=== PATIENT | male | born 1955 | race Caucasian/White ===

== ENCOUNTER → 2018-06-28 | Outpatient (CLI) | payer OTHER ==
[~2018-06-28] MED LIST: CARDIZEM CD180 MG PO; DILTIAZEM 24HR180 MG PO; HYDROCODONE-APA1 TA1 PO; IBUPROFEN 200200 M1 PO; NABUMETONE 750750 M1 PO; NEURONTIN 300300 M1 PO; NORCO 10-325 T1 EACH PO; SOMA250 MG PO; TEGRETOL XR100 MG PO
== END ==
LOC: CAT 10:47
DX: C34.92 Malignant neoplasm of unspecified part of left bronchus or lung (principal); C78.7 Secondary malignant neoplasm of liver and intrahepatic bile duct; J43.9 Emphysema, unspecified; M41.84 Other forms of scoliosis, thoracic region; M51.34 Other intervertebral disc degeneration, thoracic region

== ENCOUNTER → 2018-07-02 | Outpatient (CLI) | payer OTHER ==
[~2018-07-02] VITALS: Ht 175.3 cm; Wt 91.6 kg
[2018-07-02] VITALS (8 sets, daily range): BP systolic 99–135; BP diastolic 54–74
[~2018-07-02] MED LIST changes: +ATIVAN1 MG PO; +CARISOPRODOL 3350 MG PO; +COZAAR100 MG PO; +MELOXICAM15 MG PO; +NORCO 7.5-3251 EACH PO; +REMERON15 M2 PO; +REQUIP 1 MG TABL1 M1 PO; +SENNA-DOCUSATE1 EAC1 PO; -SOMA250 MG PO; +VENTOLIN HFA 1818 GM INH; +ZOFRAN ODT4 MG PO
[2018-07-02 08:37] LABS: HEMATOCRIT 44.9 % (42.0-52.0); HEMOGLOBIN 15.3 gm/dL (14.0-18.0); MCH 32.4 pg (26.0-34.0); MCHC 34.1 g/dL (28.0-37.0); MCV 95.1 fL (80.0-100.0); RBC 4.72 mil/uL (4.50-6.00); RDW 13.4 % (10.5-14.5); WBC 7.7 thou/uL (4.0-11.0)
[2018-07-02 08:43] LABS: CALCIUM 9.3 mg/dL (8.5-10.1); CREATININE 1.1 mg/dL (0.7-1.3); POTASSIUM 4.5 mmol/L (3.5-5.1)
[2018-07-02 08:49] LABS: APTT 28.9 Seconds (24.5-32.8); PROTIME 10.1 Seconds (9.3-11.4)
--- NOTE | 2018-07-02 11:09 | NUR ---
PT RESTING COMFORTABLY, VSS, PT LYING ON RIGHT SIDE, HEMATOMA IMPROVED, REMAINS STABLE. WILL CONTINUE TO MONITOR.
--- NOTE | 2018-07-20 11:08 | PATH ---
[facility] [address] [place] [address] PATHOLOGY RPT PROCEDURE Name: BK MCLEOD Room #: REG [facility] M.R.#: [id number] ������������������ Admission: 07/02/18 ������������������ Date of : 59 Discharge: Report #: [id number] Path Case #: [id number] LCA Accession Number: [id number] . 01 Material submitted: . RT LIVER MASS . 01 Clinical history: . Lung mass with hepatic metastasis . 02 Diagnosis: Liver mass, right, needle core biopsy: - MODERATELY DIFFERENTIATED ADENOCARCINOMA, FAVOR LUNG ORIGIN (PLEASE SEE COMMENT). [facility]/07/06/2018 . 02 Comment: Examination shows a gland forming neoplasm within the liver parenchyma. Multiple immunohistochemical stains are performed. The tumor shows strong membranous reactivity with CK7 and CK19. Strong nuclear reactivity is identified with TTF-1. CDX-2 shows scattered rare nuclear reactivity present. CK20 is nonreactive. Based on these stains, the tumor likely represents a metastasis from the lung primary. Although CDX-2 is reactive within a few nuclei, the nonreactive CK20 argues against a metastatic gastrointestinal origin. The nonreactive CK20 also argues against a hepato-biliary primary. Please correlate clinically and follow up as indicated. . Dr. Brooklyn Adrian has seen a customer engagement representative H and E slide and concurs with the diagnosis. Findings of this case are telephoned to Ms. Ford, Dr. Naren Norman's nurse, at 12:05 pm on 07/05/2018. (IUV:pit 07/06/2018) . 02 Addendum: . At the request of the oncologist, Dr. Ketan Son, mismatch repair (MMR) protein immunohistochemical staining for four markers was performed on block A1. . Reason for testing: To evaluate for evidence of defective mismatch repair proteins. Method: Immunohistochemical staining for the presence or absence of protein expression of one or more of the following MMR protein markers: MLH1,MSH2, MSH6 and PMS2. Tumor type: Moderately differentiated adenocarcinoma. . Results: MLH1 - Preserved [address] [address] PATHOLOGY RPT PROCEDURE Name: BK MCLEOD Room #: REG [facility].#: [id number] ������������������ Admission: 07/02/18 ������������������ Date of : 59 Discharge: Report #: [id number] Path Case #: [id number] MSH2 - Preserved MSH6 - Preserved PMS2 - Preserved . Mismatch Repair Status: MMR Proficient (MMR-P) . Interpretation: . All four MMR proteins are preserved within tumor cells. This suggests the presence of normal DNA mismatch repair function within the tumor and an observable defect in mismatch repair is not identified. The likelihood that this patient has an inherited germline mutation syndrome due to defective mismatch repair is reduced but not totally eliminated. If the patient has a strong personal or family history of HPNCC/Momin syndrome related cancers (colorectal, endometrial, gastric, ovarian, pancreatic, ureter/renal pelvis, biliary tract, brain, small bowel and [place]-Guido syndrome), consider MSI testing by PCR methodology. Suggest clinical correlation and follow up. . These test results are designed for screening purposes only and are useful tools in identifying cancer patients that are more likely to have Momin Syndrome related diagnoses. Tests should be interpreted in the context of clinical findings, family history and laboratory data. Abnormal IHC results for MMR protein expression are not considered diagnostic for Momin Syndrome. (IUV:jonathan; 07/08/2018) . Professional services performed by [employer] at [facility], [address] [place] [address] , [place] [address]. Technical services performed by [employer] at [address] [place] [address], [address] [address]. QTP/07/08/2018 Addendum Electronically Signed by Breonna Riley MD, Pathologist Addendum #2: Special studies report received from [facility], [address] [place] [address], [address], [place], [address], on case [id number], labeled with their number [id number], dated 07/17/2018. . Fluorescence in situ Hybridization (FISH) Report ALK Analysis . RESULT: No Evidence of ALK Gene Rearrangement Detected by FISH nuc trisha(ALKx3 approximately 6)(34/50) . Specimen Type: Tissue, Right Liver Mass . Specimen Fixative Type: 10% Neutral Buffered Formalin . Indication for Study: Adenocarcinoma, favor lung origin. [address] [address] PATHOLOGY RPT PROCEDURE Name: BK MCLEOD JR Room #: REG [facility]#: [id number] ������������������ Admission: 07/02/18 ������������������ Date of : 59 Discharge: Report #: [id number] Path Case #: [id number] . INTERPRETATION: Fluorescence in situ hybridization (FISH) analysis was performed on paraffin embedded tissue using an ALK Break Apart DNA probe (FDA approved kit, [employer]) for the detection of rearrangements involving the ALK gene. . Fifty interphase nuclei were examined and no evidence of ALK specific gene rearrangement was detected. However, 68.0% of cells showed one or more additional fusion signals for the ALK DNA sequence located at 2p; likely representing an aneuploidy population with extra copies of chromosome 2/2p ALK region. . Genetic changes other than those assayed here cannot be ruled out on the basis of this testing. Correlation with clinical and pathological findings is suggested for a complete interpretation of the results. . See FISH report [id number] for further information. See report [id number] for further information. See Molecular report [id number] for further information. . at [facility], [employer]. Lorenza Mayer, PhD, FACMG Director of Clinical Cytogenetics . . Methodology: FISH was performed using ALK Break Apart FISH Probe Kit (FDA approved, [employer] A minimum of fifty invasive tumor cells were examined from areas that were delineated by a Pathologist from a corresponding H/E slide. A classification of each nucleus as positive or negative is recorded according to line dancer's instruction. The results are calculated as a percentage of the total positive cells to total cell analyzed. The normal cutoff was established as 15% using NSCLC FFPE tissue specimen. A negative result is reported when a sample with <15% rearranged cells and a positive result is defined when a sample shown greater than or equal to 15% cells with ALK gene rearrangements. A result is considered uninformative when there are less than 50 invasive tumor cells for FISH analysis. . Intended Use: The ALK Break Apart FISH Probe procedure is a qualitative test to detect rearrangements involving the ALK gene via fluorescence in situ hybridization (FISH) in FFPE NSCLC tissue specimens to aid in identifying those patients eligible for treatment with XALKOR (crizotinib). It is intended for use only on 10% neutral buffered formalin fixed paraffin-embedded NSCLC tissue. The optimal fixation time for tissue is [facility] [address] [place] [address] PATHOLOGY RPT PROCEDURE Name: BK MCLEOD Room #: REG [facility].#: [id number] ������������������ Admission: 07/02/18 ������������������ Date of : 59 Discharge: Report #: [id number] Path Case #: [id number] 6-48 hours. The test is for prescription use only. . Disclaimer This Test was performed by [facility] [employer] at [address], [address]. [facility] is a business unit of [employer], [employer] a wholly-owned subsidiary of [employer]. . . This assay has not been validated on decalcified tissues. Results should be interpreted with caution if this specimen was decalcified given the likelihood of false negativity on decalcified specimens. . Any image(s) that accompany this report is/are a customer engagement representative image(s) only and should not be used to render a diagnosis. A complete copy of the report is on file. . Professional services performed by [facility] at [address] [place] [address], [address] [address]. Technical services performed by [employer], [employer] at [address] [place] [address], [place] [id number]. . (AMJ 07/19/2018) . . . . . Special studies report received from [facility], [address] [place] [address], on case [id number], labeled with their number [id number], dated 07/17/2018. . Fluorescence in situ Hybridization (FISH) Report TargetGene Analysis . RESULT: Negative for ROS1 gene rearrangement . Specimen Type: Tissue, Right Liver Mass . Indication for Study: Adenocarcinoma, favor lung origin. . INTERPRETATION: Fluorescence in situ hybridization (FISH) analysis was performed on this patient's paraffin embedded tissue specimen using a dual color break apart DNA probes for ROS1 gene. . One hundred interphase nuclei were examined and no evidence of a ROS1 gene [address] [address] PATHOLOGY RPT PROCEDURE Name: BK MCLEOD Room #: REG CLI Dianna.#: [id number] ������������������ Admission: 07/02/18 ������������������ Date of : 59 Discharge: Report #: [id number] Path Case #: [id number] specific rearrangement (split signal pattern) was detected. However, 22.0% of cells showed one or more additional fusion signals for the ROS1 DNA sequence located at 6q; likely representing an aneuploidy population with extra copies of chromosome 6/6q ROS1 region. . Genetic changes other than those assayed here cannot be ruled out on the basis of this testing. Correlation with clinical and other pathological findings is suggested for a complete interpretation of these results. . See report [id number] for further information. See report [id number] for further information. See Molecular report [id number] for further information. . The following TargetGene FISH analysis was performed on this patient's specimen: Probe Detection Parameters Result ISCN ROS1 (6q22) Detects a rearrangement Not Detected nuc trisha(3'ROS1,5'ROS1) of the ROS1 gene x3 approximately 4 (3'ROS1 con 5'ROS1x3 approximately 4) () . at [facility], [employer]. Lorenza Mayer, PhD, [facility] Director of Clinical Cytogenetics . Methodology: The patient specimen is processed onto a glass slide. Fluorescent DNA probe(s) is(are) applied to the cells on the slide under conditions of denaturation followed by hybridization. Stringency washes are applied and the slide is subsequently counterstained. A minimum of 100 interphase nuclei are analyzed unless otherwise indicated above. . References: Celestine Field, Yury FLORES, Vicente SH, et al. ROS1 rearrangements define a unique molecular class of lung cancers. J Clin Oncol, 2012;30:863-70. . Yury FLORES, Vicente MAYORGA, Bassem Y-J, et al. Crizotinib in ROS1-rearranged apf-eggbc-kfra lung cancer. N Engl J Med, 2014;371:1963-71 . Disclaimer This Test was performed by [employer] at [facility], [address]. . [facility] is a business unit of [employer] a wholly-owned subsidiary of [employer]. [address] [address] PATHOLOGY RPT PROCEDURE Name: BK MCLEOD JR [facility] [id number] ������������������ Admission: 07/02/18 ������������������ Date of : 59 Discharge: Report #: [id number] Path Case #: [id number] . This assay has not been validated on decalcified tissues. Results should be interpreted with caution if this specimen was decalcified given the likelihood of false negativity on decalcified specimens. . Any image(s) that accompany this report is/are a customer engagement representative image(s) only and should not be used to render a diagnosis. . This test was developed and its performance characteristics determined by [facility] [employer] It has not been cleared or approved by the Food and Drug Administration. . A complete copy of the report is on file. . Professional services performed by [facility] at [address] [place] [address]. Technical services performed by [employer] at [address] [place] [address]. . (AMJ 07/19/2018) . . . . . Special studies report received from [facility], [address] [place] [address], on case [id number], labeled with their number [id number], dated 07/19/2018. . EGFR Gene Mutation Analysis . INTERPRETATION: Negative for EGFR Mutation. . Indication for Study: Metastatic Lung Adenocarcinoma . Specimen Site and Type: Paraffin-Embedded Tissue-Right Liver . Nucleotide Change: . Amino Acid Change: . Comments: No mutations were detected within the analyzed region of the EGFR gene in the sample provided for analysis. Less than 5% of non-small cell lung carcinoma patients without identifiable mutations are reported to be responsive to EGFR tyrosine kinase inhibitor therapies. Results should be interpreted in conjunction with clinical and other laboratory findings for [address] [place] [address] PATHOLOGY RPT PROCEDURE Name: HARSHABK LACEY Room #: REG CLI [facility].#: [id number] ������������������ Admission: 07/02/18 ������������������ Date of : 59 Discharge: Report #: [id number] Path Case #: [id number] the most accurate interpretation. . A subgroup of non-small cell lung cancer (NSCLC) patients has shown clinical responsiveness to the epidermal growth factor receptor (EGFR) inhibitors gefitinib (IRESSA) and erlotinib (Tarceva), including never smokers, individuals of ethnicity, and those with adenocarcinoma histology. In the majority of patients with highly responsive tumors, the tumor contains a somatic mutation within the EGFR tyrosine kinase domain. The presence of a somatic EGFR mutation is significantly associated with response to gefitinib and erlotinib, and is strongly predictive of prolonged survival in NSCLC patients. . T790M mutation had been tested but was not detected in this submitted specimen. . This assay is able to detect 5% mutation in a background of wild-type DNA. . . See report [id number] for further information. See FISH report [id number] for further information. See report [id number] for further information. . . . at [facility], [employer]. Colin Faulkner, Ph.D., WENDY DABMG, DABCC, DLMcm, M([facility])cm, SUGAR([facility])cm . Methodology: Genomic DNA was isolated from the provided tumor specimen. Exons 18 through 21 of the EGFR gene were subjected to SNaPShot multiplex PCR and primer extension for mutation detection. . Table: This Assay Can Detect the Following Mutations EGFR EGFR Codon Mutation Approximate % of all EGFR Exon Mutations 18 E709 E709K,E709Q 1% G719 G719S,G719C,G719A,G719D 2-5% 19 Insertions 18bp ins 1% Deletions 9,12,15,18,24 bp del 45% 20 Insertions 3,6,8,12 bp ins 5-10% S768 S768I 1-2% R776 R776C <1% T790 T790M 2% 21 L858 L858R 40% A859 A859T <1% L861 L861Q,L861R 2-5% [address] [address] PATHOLOGY RPT PROCEDURE Name: BK MCLEOD Room #: REG CLI Juliana#: [id number] ������������������ Admission: 07/02/18 ������������������ Date of : 59 Discharge: Report #: [id number] Path Case #: [id number] * This Assay does not distinguish between the 18bp insertion and deletions at nucleotide position 2235 and 2237 . References: 1. Galo PA, Georgi JA, Quinn BE. Epidermal Growth Factor Receptor Mutations in Qxy-Whpjk-Mhyo Lung Cancer: Implications for Treatment and Tumor Biology. J. Clin. Oncol. 2005; 23:9592-2467. 2. Katty CLEVELAND et al. A Platform for Rapid Detection of Multiple Oncogenic Mutations with Relevance to Targeted Therapy in Toa-Lccgf-Uxtq Lung Cancer. J. Mol. Diagn. 2011;13(1):74-84. . Disclaimer This Test was performed by [facility] at [address] [place] [address], [facility] [address], [place], [address]. [employer] is a business unit of [employer] a wholly-owned subsidiary of [employer]. . . Any image(s) that accompany this report is/are a customer engagement representative image(s) only and should not be used to render a diagnosis. . This test was developed and its performance characteristics determined by [employer], [employer]. It has not been cleared or approved by the Food and Drug Administration. . A complete copy of the report is on file. . Professional services performed by [facility] at [facility] [address] [facility] [address], [place] [address]. Technical services performed by [employer] at [facility] [address] [place] [address]., [facility] [address], [place] [address]. . (AMJ 07/19/2018) . AZJ/07/19/2018 Addendum Electronically Signed by Breonna Riley MD, Pathologist Addendum #3: Special studies report received from [employer], [address] [place] [address], [facility] [address], [place], [address], on case [id number], labeled with their number [id number], dated 07/19/2018. . PD-L1 Immunohistochemistry Analysis . Body Site: Right liver mass. Specimen Received: 1 paraffin block labeled "[id number]". [place] [address] PATHOLOGY RPT PROCEDURE Name: BK MCLEOD JR [facility] #: [facility] [id number] ������������������ Admission: 07/02/18 ������������������ Date of : 59 Discharge: Report #: [id number] Path Case #: [id number] Adenocarcinoma, lung primary. . Results Table PD-L1 - KEYTRUDA (R) Tumor Interpretation Proportion [id number] <1% No Expression . . . Reference Ranges PD-L1 protein expression is determined by using the Tumor Proportion Score (TPS), which is the percentage of at least 100 viable tumor cells showing complete or partial membrane staining at greater than or equal to 1+. TPS less than 1% = No Expression TPS between 1% and 49% = Low Expression - Eligible for second-line treatment with KEYTRUDA (R) (pembrolizumab). TPS greater than or equal to 50% = High Expression - Eligible for first or second-line treatment with KEYTRUDA (R)(pembrolizumab). . . at [employer]. Lisa Gomez M.D. . Tests PD-L1 IHC Analysis . Intended Use: PD-L1, 22C3 pharmDx (TM) is FDA approved for use in the detection of PD-L1 in formalin-fixed paraffin-embedded non-small cell lung carcinoma using the [employer] Link 48 platform. The Assay is indicated as an aid in identifying metastatic NSCLC patients for treatment with KEYTRUDA(R) (pembrolizumab). PD-L1, 22C3 pharmDx (TM) is a trademark of [employer], an [employer]. Reference ranges for this test in other cancer types are not approved at this time. . References: Lani RS, Camryn P, Ann HunterW, et al: Pembrolizumab versus docetaxel for previously treated, FH-U4-bpjavqjh, advanced bor-idbps-dtgx lung cancer (KEYNOTE-010): a randomized controlled trial. Lancet 2015 Jun 16; Online(85) 1080-3. . Laura EB, Jaimee NA, Destiney R, et al: Pembrolizumab for the Treatment of Bub-Jgfrb-Wmhq Lung Cancer. N Engl J Med 2015 November 16; 372:4456-9563. . Please contact [facility] for additional references. . Disclaimer [address] [address] PATHOLOGY RPT PROCEDURE Name: BK MCLEOD Room #: REG [facility]#: [id number] ������������������ Admission: 07/02/18 ������������������ Date of : 59 Discharge: Report #: [id number] Path Case #: [id number] This Test was performed by [facility], [employer]. at [facility], [address]. [facility] is a business unit of [facility], [employer] a wholly-owned subsidiary of [employer]. . . Any image(s) that accompany this report is/are a customer engagement representative image(s) only and should not be used to render a diagnosis. . This interpretation is contingent on the specimen and the clinical information received. . Known positive cells or tissues are employed with each test and examined to ensure positivity. Positive and negative internal controls, if present, react appropriately. . This analysis is an adjunct to the evaluation of the referring physician and does not represent a final diagnosis. . The immunohistochemistry tests performed at [facility], [employer]. were validated on tissue fixed in 10% neutral buffered formalin. The performance characteristics of the tests performed on tissue processed in other fixatives is not known. . This assay has not been validated on decalcified tissues. Results should be interpreted with caution if this specimen was decalcified given the likelihood of decreased staining or false negativity on decalcified specimens. . A complete copy of the report is on file. . Professional services performed by [facility] at [address], [place] [address]. Technical services performed by [employer] at [address], [place] [address]. . (AM 07/19/2018) . . . [facility]/07/19/2018 Addendum Electronically Signed by Breonna Riley MD, Pathologist . 02 Electronically signed: . Breonna Riley MD, Pathologist NPI- [id number] . [address] [place] [address] PATHOLOGY RPT PROCEDURE Name: WENCESLAOStaceyBK DEEPTHI Room #: REG [facility]#: [id number] ������������������ Admission: 07/02/18 ������������������ Date of : 59 Discharge: Report #: [id number] Path Case #: [id number] Gross description: . The specimen is received in formalin, labeled "Bk Mcleod Jr, right liver mass BX" and consists of 3 needle cores of quispe-brown tissue measuring 2.5 cm each in length and 0.1 cm each in diameter which are entirely submitted in A1. (SDY; 07/02/2018) SYU/SYU . 02 Pathologist provided ICD-10: C22.9 . 02 CPT . 947803, A98325, C91923 Specimen Comment: A courtesy copy of this report has been sent to Specimen Comment: [phone], , . Specimen Comment: Report sent to ,DR NORMAN / DR CHEN Specimen Comment: A duplicate report has been generated due to demographic updates. Performed at: [address] [facility], [place] [address] MD Darrin Arango MD Phone: [phone] Performed at: [address] [facility] [id number] MD Breonna Riley MD Phone: [phone]
== END | disposition home or self-care (01) ==
LOC: ULTRA 08:12
PROVIDERS: Radiology Diagnostic Radiology
DX: C78.7 Secondary malignant neoplasm of liver and intrahepatic bile duct (principal); J45.909 Unspecified asthma, uncomplicated; G47.33 Obstructive sleep apnea (adult) (pediatric); F17.210 Nicotine dependence, cigarettes, uncomplicated; Z98.890 Other specified postprocedural states; Z82.49 Family history of ischemic heart disease and other diseases of the circulatory system; Z86.73 Personal history of transient ischemic attack (TIA), and cerebral infarction without residual deficits; Z88.8 Allergy status to other drugs, medicaments and biological substances; Z79.899 Other long term (current) drug therapy

== ENCOUNTER 2018-07-19 21:40 | Emergency (ER) | payer OTHER ==
[~2018-07-19] VITALS: Ht 175.3 cm; Wt 90.7 kg
[~2018-07-19 21:40] MED LIST changes: -NORCO 7.5-3251 EACH PO; -SENNA-DOCUSATE1 EAC1 PO; -ZOFRAN ODT4 MG PO
[2018-07-19 22:26] LABS: URINE BILIRUBIN NEGATIVE (Negative); URINE BLOOD NEGATIVE (Negative); URINE CLARITY CLEAR; URINE COLOR YELLOW; URINE GLUCOSE-RANDOM* NEGATIVE (Negative); URINE KETONES NEGATIVE (Negative); URINE LEUKOCYTES NEGATIVE (Negative); URINE NITRITE NEGATIVE (Negative); URINE PROTEIN (DIPSTICK) NEGATIVE (Negative); URINE SPECIFIC GRAVITY 1.025 (1.005-1.035); URINE UROBILINOGEN 0.2 E.U./dl (0.2-1.0)
[2018-07-19 23:35] LABS: ABSOLUTE NEUTROPHILS 5.8 thou/uL (1.4-8.2); BASOPHILS 0.9 % (0.0-2.0); HEMATOCRIT 38.5 % (42.0-52.0); HEMOGLOBIN 13.6 gm/dL (14.0-18.0); MCH 33.2 pg (26.0-34.0); MCHC 35.4 g/dL (28.0-37.0); MCV 93.7 fL (80.0-100.0); MONOCYTES 9.4 % (1.0-8.0); PLATELET COUNT 200 thou/uL (150-400); POLYS 65.7 % (36.0-66.0); RBC 4.11 mil/uL (4.50-6.00); RDW 12.9 % (10.5-14.5); WBC 8.9 thou/uL (4.0-11.0)
[2018-07-19 23:42] LABS: ANION GAP 5 mmol/L (7-16); BUN 22 mg/dL (7-18); CALCIUM 9.1 mg/dL (8.5-10.1); CHLORIDE 102 mmol/L (98-107); CO2 30 mmol/L (21-32); CREATININE 0.8 mg/dL (0.7-1.3); GLUCOSE 97 mg/dL (74-106); POTASSIUM 4.4 mmol/L (3.5-5.1); SODIUM 137 mmol/L (136-145)
[2018-07-19 23:48] LABS: ALBUMIN 3.5 g/dL (3.4-5.0); DIRECT BILIRUBIN < 0.1 mg/dL (<0.1-0.3); LIPASE 249 U/L (73-393); SGOT 45 U/L (15-37); SGPT 49 U/L (30-65); TOTAL BILIRUBIN 0.3 mg/dL (<0.1-1.0); TOTAL PROTEIN 7.6 g/dL (6.4-8.2)
[2018-07-20] MEDS ORDERED: SENNA-DOCUSATE1 EAC1 PO (02:03)
[2018-07-20] MEDS ORDERED: ZOFRAN ODT4 MG PO (02:03)
[2018-07-20] MEDS ORDERED: NORCO 7.5-3251 EACH PO (02:03)
[2018-07-20 03:01] VITALS: BP 118/67
== END 2018-07-20 03:01 | disposition home or self-care (01) ==
LOC: ER 21:40
PROVIDERS: Nurse Practitioner
DX: C78.7 Secondary malignant neoplasm of liver and intrahepatic bile duct (principal); K59.00 Constipation, unspecified; J45.909 Unspecified asthma, uncomplicated; G47.30 Sleep apnea, unspecified; F17.210 Nicotine dependence, cigarettes, uncomplicated; Z88.5 Allergy status to narcotic agent; Z88.8 Allergy status to other drugs, medicaments and biological substances

== ENCOUNTER → 2018-07-19 | Outpatient (CLI) | payer OTHER ==
[~2018-07-19] VITALS: Ht 175.3 cm; Wt 86.2 kg
[2018-07-19 09:47] VITALS: BP 100/59
[2018-07-19 09:51] LABS: PROTIME 10.5 Seconds (9.3-11.4)
[2018-07-19 11:59] VITALS: BP 111/60
== END | disposition home or self-care (01) ==
LOC: SPEC 08:52
PROVIDERS: Radiology Diagnostic Radiology
DX: Z45.2 Encounter for adjustment and management of vascular access device (principal); C78.7 Secondary malignant neoplasm of liver and intrahepatic bile duct; I49.9 Cardiac arrhythmia, unspecified; J45.909 Unspecified asthma, uncomplicated; G47.33 Obstructive sleep apnea (adult) (pediatric); F17.210 Nicotine dependence, cigarettes, uncomplicated; Z88.8 Allergy status to other drugs, medicaments and biological substances; Z86.73 Personal history of transient ischemic attack (TIA), and cerebral infarction without residual deficits; Z79.899 Other long term (current) drug therapy; Z98.890 Other specified postprocedural states; Z79.01 Long term (current) use of anticoagulants

== ENCOUNTER → 2018-08-24 | Outpatient (CLI) | payer OTHER ==
[~2018-08-24] MED LIST changes: +NORCO 7.5-3251 EACH PO; +SENNA-DOCUSATE1 EAC1 PO; +ZOFRAN ODT4 MG PO
== END ==
LOC: RAD 09:58
DX: T82.848A Pain due to vascular prosthetic devices, implants and grafts, initial encounter (principal); G89.18 Other acute postprocedural pain; Y82.8 Other medical devices associated with adverse incidents; Y92.89 Other specified places as the place of occurrence of the external cause

== ENCOUNTER 2018-10-10 17:11 | Emergency (ER) | payer OTHER ==
[~2018-10-10] VITALS: Ht 175.3 cm; Wt 75.8 kg
[2018-10-10] MEDS ORDERED: OXYCONTIN10 M1 PO (18:02)
[2018-10-10] MEDS ORDERED: PROZAC20 MG PO (18:03)
[2018-10-10] MEDS ORDERED: KLONOPIN0.5 MG PO (18:03)
[2018-10-10] MEDS ORDERED: LOPERAMIDE 2 MG2 MG PO (18:04)
[2018-10-10 18:08] LABS: ABSOLUTE NEUTROPHILS 7.8 thou/uL (1.4-8.2); BASOPHILS 0.6 % (0.0-2.0); EOSINOPHILS 1.7 % (0.0-3.0); HEMATOCRIT 31.3 % (42.0-52.0); HEMOGLOBIN 10.6 gm/dL (14.0-18.0); LYMPHOCYTES 21.4 % (24.0-44.0); MCH 33.4 pg (26.0-34.0); MCHC 33.8 g/dL (28.0-37.0); MCV 98.7 fL (80.0-100.0); MONOCYTES 9.8 % (1.0-8.0); PLATELET COUNT 220 thou/uL (150-400); POLYS 66.5 % (36.0-66.0); RBC 3.17 mil/uL (4.50-6.00); RDW 19.6 % (10.5-14.5); WBC 11.7 thou/uL (4.0-11.0)
[2018-10-10 18:19] LABS: CALCIUM 8.3 mg/dL (8.5-10.1); CREATININE 0.7 mg/dL (0.7-1.3)
[2018-10-10 18:25] LABS: TOTAL BILIRUBIN 0.3 mg/dL (<0.1-1.0); TOTAL PROTEIN 6.6 g/dL (6.4-8.2)
[2018-10-10 18:35] LABS: ANISOCYTOSIS 2+
[2018-10-10 20:00] VITALS: BP 97/59
== END 2018-10-10 20:00 | disposition home or self-care (01) ==
LOC: ER 17:11
PROVIDERS: Physician Assistant
DX: M79.89 Other specified soft tissue disorders (principal); R60.0 Localized edema; J45.909 Unspecified asthma, uncomplicated; G47.30 Sleep apnea, unspecified; F17.210 Nicotine dependence, cigarettes, uncomplicated; Z88.6 Allergy status to analgesic agent; Z88.8 Allergy status to other drugs, medicaments and biological substances

== ENCOUNTER 2019-04-26 09:30 | Inpatient (IN) | payer OTHER ==
[~2019-04-26] VITALS: Ht 175.3 cm; Wt 76.0 kg
[~2019-04-26 09:30] MED LIST changes: +KLONOPIN0.5 MG PO; +LOPERAMIDE 2 MG2 MG PO; +OXYCONTIN10 M1 PO; +PROZAC20 MG PO
[2019-04-26 10:20] VITALS: BP 127/72
[2019-04-26] MEDS ORDERED: ONDANSETRON ODT8 MG PO (10:58)
[2019-04-26] MEDS ORDERED: OXYCODONE HCL20 M1 PO (11:01)
[2019-04-26] MEDS ORDERED: VIT B COMPLEX PO (11:03)
[2019-04-26] MEDS ORDERED: EMERGEN-C 1,01000 MG PO (11:04)
[2019-04-26] MEDS ORDERED: DURAGESIC1 EAC2 TRANSDERM (11:05)
[2019-04-26] MEDS ORDERED: HYDROCHLOROTHIA25 M1 PO (11:06)
[2019-04-26] MEDS ORDERED: MIRTAZAPINE15 M2 PO (11:07)
[2019-04-26] MEDS ORDERED: COMPAZINE10 MG PO (11:08)
[2019-04-26 12:50] LABS: ABSOLUTE NEUTROPHILS 4.6 thou/uL (1.4-8.2); BASOPHILS 0.6 % (0.0-2.0); EOSINOPHILS 2.1 % (0.0-3.0); HEMATOCRIT 30.9 % (42.0-52.0); LYMPHOCYTES 16.8 % (24.0-44.0); MCH 32.5 pg (26.0-34.0); MCHC 32.5 g/dL (28.0-37.0); PLATELET COUNT 159 thou/uL (150-400); POLYS 76.5 % (36.0-66.0); RBC 3.09 mil/uL (4.50-6.00); RDW 19.4 % (10.5-14.5)
[2019-04-26 13:15] LABS: ALBUMIN 2.7 g/dL (3.4-5.0); CALCIUM 8.1 mg/dL (8.5-10.1); CREATININE 0.7 mg/dL (0.7-1.3); MAGNESIUM 1.7 mg/dL (1.8-2.4); POTASSIUM 3.2 mmol/L (3.5-5.1); TOTAL BILIRUBIN 0.4 mg/dL (<0.1-1.0); TOTAL PROTEIN 6.9 g/dL (6.4-8.2)
[2019-04-26 13:44] LABS: URINE BILIRUBIN NEGATIVE (Negative); URINE BLOOD NEGATIVE (Negative); URINE CLARITY CLEAR; URINE COLOR YELLOW; URINE GLUCOSE-RANDOM* NEGATIVE (Negative); URINE KETONES NEGATIVE (Negative); URINE LEUKOCYTES-REFLEX NEGATIVE (Negative); URINE NITRITE-REFLEX NEGATIVE (Negative); URINE PROTEIN (DIPSTICK) NEGATIVE (Negative); URINE SPECIFIC GRAVITY 1.015 (1.005-1.035); URINE UROBILINOGEN 0.2 E.U./dl (0.2-1.0)
[2019-04-26 15:20] VITALS: BP 109/64
--- NOTE | 2019-04-26 18:02 | NUR ---
PATIENT DOPPLER LOWER EXTREMETIES NOTED. ADMISSION ASSESSMENT AND HISTORY DOCUMENTED. PATIENT CONTINUE TO PROGRESS TOWARDS PLAN OF CARE GOALS OF IMPROVED SIGNS OF INFECTION, DECREASED APPEARANCE OF CELLULITIS, AND PAIN CONTROL.
[2019-04-26 18:57] VITALS: BP 96/57
[2019-04-27 04:29] VITALS: BP 126/72
[2019-04-27 06:22] LABS: HEMATOCRIT 25.9 % (42.0-52.0); HEMOGLOBIN 8.5 gm/dL (14.0-18.0); MCH 32.7 pg (26.0-34.0); MCV 99.2 fL (80.0-100.0); PLATELET COUNT 121 thou/uL (150-400); RBC 2.61 mil/uL (4.50-6.00); RDW 19.2 % (10.5-14.5); WBC 3.8 thou/uL (4.0-11.0)
[2019-04-27 06:35] LABS: CALCIUM 8.4 mg/dL (8.5-10.1); CREATININE 0.8 mg/dL (0.7-1.3); MAGNESIUM 1.7 mg/dL (1.8-2.4); POTASSIUM 3.6 mmol/L (3.5-5.1)
--- NOTE | 2019-04-27 06:42 | NUR ---
ASSUMED CARE OF PT AT 1900. A&Ox4, COOPERATIVE. VS STABLE, AFEBRILE. STABLE OVER NOC W/ ANTIBX GIVEN ORDERED. C/O PAIN IN BLE THIS AM, REQUESTED MEDS AND NICOTINE PATCH EARLY, PROVIDED, MONITORING. WAS UP AD JORGE TO BR OVER NOC, STABLE GAIT. AT BEDSIDE. PROGRESSING TOWARDS POC GOALS.
[2019-04-27 07:15] VITALS: BP 94/53
[2019-04-27 08:58] LABS: ABSOLUTE NEUTROPHILS 1.9 thou/uL (1.4-8.2); ANISOCYTOSIS 2+
--- NOTE | 2019-04-27 14:01 | NUR ---
ASSESSMENT: CM REVIEWED CHART AND MET WITH PATIENT AND HIS AT THE BEDSIDE. PT WAS ADMITTED WITH CELLULITIS OF LOWER EXTREMITIES. PT REPORTS THAT HE LIVES AT HOME WITH HIS IN A HOUSE. PT REPORTS HAVING 4 STEPS TO ENTER WITH HANDRAILS AND NO STEPS ONCE INSIDE. PT REPORTS HE IS FULLY INDEPENDENT WITH ADLS AND AMBULATION. PT REPORTS HE HAS NOT HAD HH IN THE PAST NOR BEEN TO A SNF. CM DISCUSSED ROLE. PT IS HOPEFUL TO RETURN HOME WITH NO NEEDS. CM WILL CONTINUE TO FOLLOW TO ASSIST NEEDED.
[2019-04-27 16:55] VITALS: BP 95/59
[2019-04-27 19:51] VITALS: BP 95/54
[2019-04-28 05:17] VITALS: BP 95/52
[2019-04-28 05:26] LABS: HEMATOCRIT 25.3 % (42.0-52.0); HEMOGLOBIN 8.4 gm/dL (14.0-18.0); MCH 32.9 pg (26.0-34.0); MCHC 33.3 g/dL (28.0-37.0); MCV 98.8 fL (80.0-100.0); RBC 2.57 mil/uL (4.50-6.00); RDW 19.4 % (10.5-14.5); WBC 3.2 thou/uL (4.0-11.0)
[2019-04-28 05:53] LABS: CALCIUM 8.1 mg/dL (8.5-10.1); CREATININE 0.9 mg/dL (0.7-1.3); POTASSIUM 3.3 mmol/L (3.5-5.1)
[2019-04-28 07:22] VITALS: BP 93/55
--- NOTE | 2019-04-28 11:59 | HC ---
[facility] [place] [address] CONSULTATION Name: ARIANNA MCLEOD JR Room #: 357-P ADM IN M.R.#: [id number] Admission: 04/26/19 Attend Phys: Jeff Wolfe MD Discharge: Date of : 59 Report #: [id number] THIS REPORT FOR: //name// CC: Venancio Mo MD REQUESTING PHYSICIAN: Jeff Wolfe MD HISTORY OF PRESENT ILLNESS: The patient is a very pleasant 63-year-old gentleman with a history of adenocarcinoma from a liver biopsy from about 07/02/2018 at [facility]. The patient has stage 4 disease and initially received therapy with FOLFIRINOX chemotherapy, had response, then progression. At that time, we thought he might have had a biliary cancer. When he had progression in 09/2018, upon further review, we thought this might be a lung cancer and switched to Gemzar and Abraxane. The patient does appear to be responding to this therapy when last tested, though he is slightly overdue for a PET scan, which will be ordered as an outpatient. The patient reports about a 3-day history of initial leg swelling, then redness, then fever at home. He was admitted for same. Overnight, he received Lasix and begin Zosyn antibiotics and appears to be much improved. Before this, he had the slight fever, he had the leg swelling, he had the redness. Denied any chest pain, any shortness of air more than usual, any lightheadedness, any blood in his urine or stool, any new urinary symptoms. He also mentions that CBD oil was helping his leg tightness and discomfort. PAST MEDICAL HISTORY: Notable for the diagnosis of stage IV adenocarcinoma of the lung. Also, history of chronic pain and neuropathy. Also, mood disorder/depression, hypertension, hyperlipidemia, beryllium and asbestos exposure, emphysema and restless leg syndrome. SOCIAL HISTORY: He is currently retired/disabled. FAMILY HISTORY: Noncontributory. MEDICATIONS: At this time, currently include furosemide 40 daily IV, diltiazem 240 daily, pantoprazole 40 daily p.o., Zosyn 3.375 g q.8, Lovenox 40 mg at bedtime, mirtazapine 15 at bedtime, hydrochlorothiazide 25 b.i.d., oxycodone 20 mg IR q.3 p.r.n., fentanyl 25 mcg transdermal patch q.72 hours, carisoprodol 350 mg q.i.d. p.r.n., clonazepam 1 mg q.8 p.r.n., Compazine 10 mg q.4 IV p.r.n., Senokot-S 1 tab b.i.d. p.r.n., nicotine patch 21 mg transdermal daily, lorazepam 1 mg q.6 p.o. p.r.n., Tylenol p.r.n., MiraLax 17 grams daily p.r.n., nitroglycerin 0.4 sublingual p.r.n. and Zofran p.r.n. [address] [address] CONSULTATION Name: ARIANNA MCLEOD Room #: 357-P [facility] IN M.R.#: [id number] Admission: 04/26/19 Attend Phys: Jeff Wolfe MD Discharge: Date of : 59 Report #: [id number] PHYSICAL EXAMINATION: GENERAL: The patient appears his stated age. VITAL SIGNS: Recent height is 5 feet 9 inches, 175.3 cm. Weight 169 pounds, 77 kilograms. T-max so far has been 99.6, currently 98.5, blood pressure 94/53, respirations 16, pulse 52. MOOD: The patient is alert and pleasant. NEUROLOGIC: Speech and thought pattern normal. Moving all extremities. HEENT: Oropharynx is clear without any erythema, exudate or masses. LYMPHATICS: No enlarged lymph nodes in the supraclavicular, cervical, axillary or inguinal region. ABDOMEN: Slightly obese. No masses. EXTREMITIES: Without clubbing, cyanosis. There is edema up to about mid ayala, though the patient reports there is also some slight redness about 2/3 up towards the knees, right slightly worse than left. LABORATORY DATA: Here notable for BUN of 11, creatinine 0.8. Total bilirubin 0.4. White count 3.8, hemoglobin 8.5, platelets 121. ASSESSMENT AND PLAN: 1. Stage IV adenocarcinoma of the lung, has been responding, will be due for a PET scan when outpatient. 2. Peripheral edema, fever and redness of lower extremities suggestive of cellulitis, improved. No sign of clot. Continue antibiotic and Lasix per others. 3. Neuropathic pain. Continues carisoprodol, OxyIR and fentanyl and CBD ointment. 4. Depression and mood. Continue antidepressant medications. 5. Hyperlipidemia per others. 6. Hypertension per others. 7. Beryllium exposure, follow. 8. Emphysema. Aerosols. 9. Restless legs. Medications per others. We will follow with you. <ELECTRONICALLY SIGNED> By: Ktean Son MD 04/28/19 [id number] Ketan Son MD /nini
--- NOTE | 2019-04-28 12:33 | NUR ---
ON-GOING ASSESSMENT: PT IS SLOWLY PROGRESSING TOWARDS DISCHARGE GOALS. PT MAY BE POSSIBLE DISCHARGE HOME TOMORROW. CM WILL CONTIUE TO FOLLOW TO ASSIST NEEDED.
[2019-04-28 15:20] VITALS: BP 84/47
[2019-04-28 16:51] VITALS: BP 98/58
--- NOTE | 2019-04-28 19:58 | NUR ---
pt is A&OX3, PT is continuing IV abx and pain management, pt's BLE edema and redness have improved, pt's vs are stable, pt has slowly meeting care plan goals.
[2019-04-28 20:45] VITALS: BP 103/58
[2019-04-28 22:28] LABS: MAGNESIUM 2.2 mg/dL (1.8-2.4); POTASSIUM 3.9 mmol/L (3.5-5.1)
[2019-04-29 04:50] VITALS: BP 118/59
[2019-04-29 07:07] VITALS: BP 97/56
[2019-04-29 07:16] LABS: HEMATOCRIT 29.4 % (42.0-52.0); HEMOGLOBIN 9.6 gm/dL (14.0-18.0); MCH 32.8 pg (26.0-34.0); MCHC 32.6 g/dL (28.0-37.0); MCV 100.5 fL (80.0-100.0); RBC 2.92 mil/uL (4.50-6.00); RDW 19.2 % (10.5-14.5); WBC 5.7 thou/uL (4.0-11.0)
[2019-04-29 07:24] LABS: CALCIUM 8.3 mg/dL (8.5-10.1); CREATININE 0.8 mg/dL (0.7-1.3); POTASSIUM 3.8 mmol/L (3.5-5.1)
--- NOTE | 2019-04-29 08:12 | NUR ---
PT MAKING PROGRESS TOWARDS GOALS. X2 DOSES OF OXYCODONE FOR BL LE PAIN. PT REPORTS MILD-MODERATE RELIEF WITH DOSES. UP AD JORGE, REPORTS THAT HIS LEGS ARE LOOKING BETTER THAN WHEN HE WAS ADMITTED.
--- NOTE | 2019-04-29 13:10 | NUR ---
ON-GOING ASSESSMENT: CM REVIEWED CHART AND SPOKE WITH ATTENDING. PT IS SLOWLY PROGRESSING TOWARDS DISCHARGE GOALS AND IS LIKELY DISCHARGE THIS WEEKEND. PT WILL HAVE NO NEEDS AT THE TIME OF DISCHARGE.
[2019-04-29 15:26] VITALS: BP 91/54
--- NOTE | 2019-04-29 19:44 | NUR ---
PT is A&OX3, PT is continuing iv ABX and pain management, pt's vs are stable, .
[2019-04-29 20:00] VITALS: BP 93/50
--- NOTE | 2019-04-30 04:10 | NUR ---
ASSUMED CARE AT 1900. PT REPORTS MODERATE PAIN FROM KNEES TO BOTTOMS OF FEET; GIVEN PAIN MEDS WITH HS MEDS, PT ABLE TO FALL ASLEEP. DENIES SOB OR NAUSEA. USING HOME CPAP OVERNIGHT. IN ROOM WITH PT OVERNIGHT. IV ABX INFUSING VIA PORTACATH. EDUCATED PT TO CALL FOR HELP NEEDED OVERNIGHT; UP AD JORGE IN ROOM. NO OTHER CONCERNS, WILL CONTINUE TO MONITOR.
[2019-04-30 05:00] VITALS: BP 100/60
[2019-04-30 06:43] LABS: HEMATOCRIT 28.7 % (42.0-52.0); HEMOGLOBIN 9.4 gm/dL (14.0-18.0); MCH 32.9 pg (26.0-34.0); MCHC 32.8 g/dL (28.0-37.0); MCV 100.2 fL (80.0-100.0); RBC 2.86 mil/uL (4.50-6.00); WBC 5.1 thou/uL (4.0-11.0)
[2019-04-30 06:51] LABS: CALCIUM 8.1 mg/dL (8.5-10.1); CREATININE 0.9 mg/dL (0.7-1.3); POTASSIUM 3.7 mmol/L (3.5-5.1)
[2019-04-30 06:57] VITALS: BP 85/54
[2019-04-30] MEDS ORDERED: KEFLEX500 M2 PO (12:38)
[2019-04-30 13:50] VITALS: BP 85/54
--- NOTE | 2019-04-30 20:16 | NUR ---
PT'BLE CELULITIS HAVE IMPROVED, PT 'S VS ARE STABLE, PT WAS D/C TO HOME ABOUT 3PM, RN HAD GINVING D/C TEACHING, PT AND PT'S UNDSTANERED WELL.
== END 2019-04-30 14:27 | disposition home or self-care (01) | DRG 602 ==
LOC: 3W 09:30
PROVIDERS: Nurse Practitioner; ADMIT Hospitalist
DX: L03.116 Cellulitis of left lower limb (principal); E43 Unspecified severe protein-calorie malnutrition; C34.90 Malignant neoplasm of unspecified part of unspecified bronchus or lung; E46 Unspecified protein-calorie malnutrition; E87.6 Hypokalemia; E83.42 Hypomagnesemia; G47.33 Obstructive sleep apnea (adult) (pediatric); L03.115 Cellulitis of right lower limb; F17.210 Nicotine dependence, cigarettes, uncomplicated; F32.9 Major depressive disorder, single episode, unspecified; I10 Essential (primary) hypertension; K59.09 Other constipation; G89.4 Chronic pain syndrome; Z66 Do not resuscitate; F41.9 Anxiety disorder, unspecified; Z51.5 Encounter for palliative care; E78.5 Hyperlipidemia, unspecified; J43.9 Emphysema, unspecified; G25.81 Restless legs syndrome; G62.9 Polyneuropathy, unspecified; Z88.6 Allergy status to analgesic agent; Z88.8 Allergy status to other drugs, medicaments and biological substances; Z68.24 Body mass index [BMI] 24.0-24.9, adult
CPT/HCPCS: 10779

== ENCOUNTER 2019-08-02 12:20 | Emergency (ER) | payer OTHER ==
[~2019-08-02] VITALS: Ht 175.3 cm; Wt 69.4 kg
--- NOTE | ~2019-08-02 | EKG ---
[facility] [place] [address] ELECTROCARDIOGRAM REPORT Name: ARIANNA MCLEOD Room #: [facility]..#: [id number] Admission: Attend Phys: Discharge: Date of : 59 Report #: [id number] THIS REPORT FOR: cc: Herminio Mo Steven F. 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
[~2019-08-02 12:20] MED LIST changes: +COMPAZINE10 MG PO; +DURAGESIC1 EAC2 TRANSDERM; +EMERGEN-C 1,01000 MG PO; +HYDROCHLOROTHIA25 M1 PO; +KEFLEX500 M2 PO; +MIRTAZAPINE15 M2 PO; +ONDANSETRON ODT8 MG PO; +OXYCODONE HCL20 M1 PO; +VIT B COMPLEX PO
[2019-08-02 13:29] LABS: ABSOLUTE NEUTROPHILS 8.3 thou/uL (1.4-8.2); BASOPHILS 0.3 % (0.0-2.0); EOSINOPHILS 0.2 % (0.0-3.0); HEMATOCRIT 44.4 % (42.0-52.0); MCH 33.1 pg (26.0-34.0); MCHC 33.6 g/dL (28.0-37.0); MCV 98.4 fL (80.0-100.0); MONOCYTES 10.9 % (1.0-8.0); PLATELET COUNT 183 thou/uL (150-400); POLYS 79.6 % (36.0-66.0); RBC 4.52 mil/uL (4.50-6.00); RDW 18.8 % (10.5-14.5); WBC 10.5 thou/uL (4.0-11.0)
[2019-08-02 13:32] LABS: ANION GAP 11 mmol/L (7-16); BUN 21 mg/dL (7-18); CALCIUM 9.6 mg/dL (8.5-10.1); CHLORIDE 97 mmol/L (98-107); CO2 25 mmol/L (21-32); CREATININE 0.9 mg/dL (0.7-1.3); GLUCOSE 93 mg/dL (74-106); POTASSIUM 4.4 mmol/L (3.5-5.1); SODIUM 133 mmol/L (136-145)
[2019-08-02 13:42] LABS: LIPASE 105 U/L (73-393); SGOT 426 U/L (15-37); SGPT 224 U/L (30-65); TOTAL BILIRUBIN 2.6 mg/dL (<0.1-1.0); TOTAL PROTEIN 9.8 g/dL (6.4-8.2); TROPONIN-I <0.06 ng/mL (<0.06)
[2019-08-02 13:47] LABS: INR 1.3; PROTIME 13.3 Seconds (9.3-11.4)
[2019-08-02 14:04] LABS: ANISOCYTOSIS 1+
[2019-08-02 14:10] LABS: POLYCHROMASIA OCCASIONAL
[2019-08-02] MEDS ORDERED: MIRALAX119 GM PO (15:18)
[2019-08-02] MEDS ORDERED: SOMA350 MG PO (15:20)
[2019-08-02 15:31] LABS: URINE BILIRUBIN NEGATIVE (Negative); URINE BLOOD NEGATIVE (Negative); URINE CLARITY CLEAR; URINE COLOR YELLOW; URINE GLUCOSE-RANDOM* NEGATIVE (Negative); URINE KETONES NEGATIVE (Negative); URINE LEUKOCYTES-REFLEX NEGATIVE (Negative); URINE NITRITE-REFLEX NEGATIVE (Negative); URINE PROTEIN (DIPSTICK) NEGATIVE (Negative); URINE SPECIFIC GRAVITY <= 1.005 (1.005-1.035)
[2019-08-02 18:31] LABS: CLARITY CLOUDY; COLOR RED; TOTAL VOLUME 35 mL
[2019-08-02 18:32] LABS: SOURCE ABDOMINAL FLUID
[2019-08-02 18:36] LABS: BF NUCLEATED CELLS 2370; BF RBC 15176
[2019-08-02 19:16] LABS: BF MACROPHAGE 3; BF NEUTROPHILS 88
[2019-08-02] MEDS ORDERED: OXYCODONE HCL20 M1 PO (21:02)
[2019-08-02 21:27] VITALS: BP 108/78
[2019-08-03 07:58] LABS: SOURCE ABDOMINAL
[2019-08-04 12:09] LABS: BODY FLUID GLUCOSE 81 mg/dL (()); BODY FLUID LDH 687 IU/L (()); BODY FLUID PROTEIN 2.8 g/dL (())
== END 2019-08-02 21:27 | disposition home or self-care (01) ==
LOC: ER 12:20
PROVIDERS: Emergency Medicine
DX: C78.7 Secondary malignant neoplasm of liver and intrahepatic bile duct (principal); C34.90 Malignant neoplasm of unspecified part of unspecified bronchus or lung; R10.84 Generalized abdominal pain; J45.909 Unspecified asthma, uncomplicated; G47.30 Sleep apnea, unspecified; F17.210 Nicotine dependence, cigarettes, uncomplicated; Z88.6 Allergy status to analgesic agent; Z85.118 Personal history of other malignant neoplasm of bronchus and lung

== ENCOUNTER 2019-08-03 10:16 | Inpatient (IN) | payer OTHER ==
[~2019-08-03] VITALS: Ht 175.3 cm; Wt 68.5 kg
[~2019-08-03 10:16] MED LIST changes: +MIRALAX119 GM PO; +SOMA350 MG PO
[2019-08-03 10:20] VITALS: BP 116/79
[2019-08-03 11:11] LABS: ABSOLUTE NEUTROPHILS 7.6 thou/uL (1.4-8.2); BASOPHILS 0.5 % (0.0-2.0); EOSINOPHILS 0.1 % (0.0-3.0); HEMATOCRIT 40.6 % (42.0-52.0); HEMOGLOBIN 13.6 gm/dL (14.0-18.0); LYMPHOCYTES 7.7 % (24.0-44.0); MCH 32.9 pg (26.0-34.0); MCHC 33.4 g/dL (28.0-37.0); MCV 98.5 fL (80.0-100.0); MONOCYTES 11.7 % (1.0-8.0); PLATELET COUNT 184 thou/uL (150-400); RBC 4.12 mil/uL (4.50-6.00); RDW 18.4 % (10.5-14.5); WBC 9.5 thou/uL (4.0-11.0)
[2019-08-03 11:19] LABS: CALCIUM 9.7 mg/dL (8.5-10.1); CREATININE 0.9 mg/dL (0.7-1.3); POTASSIUM 4.6 mmol/L (3.5-5.1)
[2019-08-03 11:25] LABS: ALBUMIN 2.7 g/dL (3.4-5.0); DIRECT BILIRUBIN 2.1 mg/dL (<0.1-0.2); TOTAL BILIRUBIN 3.1 mg/dL (<0.1-1.0); TOTAL PROTEIN 8.7 g/dL (6.4-8.2)
[2019-08-03 11:55] LABS: ANISOCYTOSIS 1+
[2019-08-03 14:47] VITALS: BP 108/75
[2019-08-03 15:31] VITALS: BP 117/70
[2019-08-03 19:40] VITALS: BP 108/77
--- NOTE | 2019-08-03 19:59 | NUR ---
PATIENT ADMITTED TO ROOM AT THIS TIME. RESPIRATIONS ARE NON LABORED. HE COMPLAINED OF ABDOMINAL PAIN AND DILAUDID ADMINISTERED. HE LATER STATED THAT IT DID NOT TOUCH THE PAIN AT ALL AND REQUESTED OXY WHICH WAS ADMININSTERED. IT WAS EFFECTIVE. WILL CONT WITH PLAN OF CARE.
[2019-08-03 23:53] VITALS: BP 119/72
[2019-08-04 03:08] VITALS: BP 129/82
[2019-08-04 03:18] LABS: HEMATOCRIT 36.5 % (42.0-52.0); HEMOGLOBIN 12.2 gm/dL (14.0-18.0); MCH 32.6 pg (26.0-34.0); MCHC 33.4 g/dL (28.0-37.0); MCV 97.9 fL (80.0-100.0); RBC 3.73 mil/uL (4.50-6.00); RDW 18.6 % (10.5-14.5); WBC 9.7 thou/uL (4.0-11.0)
[2019-08-04 03:31] LABS: CALCIUM 8.7 mg/dL (8.5-10.1); POTASSIUM 4.4 mmol/L (3.5-5.1)
--- NOTE | 2019-08-04 03:37 | NUR ---
Patient making slow progress towards outcome goals. Low grade temp, IV antibiotics changed to Zosyn, lactic acid tending down. BP and rhythm stable. Good oral intake and output. No bm x 2 days Miralax given. Gait steady, low fall risks. Up ambulating around unit.
[2019-08-04 07:51] VITALS: BP 121/74
[2019-08-04 16:20] VITALS: BP 122/64
[2019-08-04 19:49] VITALS: BP 121/73
[2019-08-05 06:16] LABS: HEMATOCRIT 38.4 % (42.0-52.0); HEMOGLOBIN 12.9 gm/dL (14.0-18.0); MCH 32.7 pg (26.0-34.0); MCHC 33.6 g/dL (28.0-37.0); MCV 97.5 fL (80.0-100.0); RBC 3.94 mil/uL (4.50-6.00); RDW 18.5 % (10.5-14.5); WBC 10.2 thou/uL (4.0-11.0)
--- NOTE | 2019-08-05 06:26 | NUR ---
Pt. slept well most of the night. Medicated for pain with good relief. at bedside. Encouraged to use urinal in the bathroom for accurate I/O but just used the toilet instead. Will continue to monitor.
[2019-08-05 06:47] LABS: ALBUMIN 2.9 g/dL (3.4-5.0); CREATININE 0.7 mg/dL (0.7-1.3); POTASSIUM 4.5 mmol/L (3.5-5.1); TOTAL BILIRUBIN 3.7 mg/dL (<0.1-1.0); TOTAL PROTEIN 8.2 g/dL (6.4-8.2)
[2019-08-05 07:48] VITALS: BP 136/82
[2019-08-05 15:19] VITALS: BP 92/67
--- NOTE | 2019-08-05 15:51 | NUR ---
INITIAL ASSESSMENT: SW reviewed chart and spoke with nursing and attending physician. Pt was admitted from home. Pt with hx of metastatic lung cancer. Pt had paracentesis yesterday. Palliative care physician to be consulted to discuss plan of care and treatment goals. Pt is a DNR. No weekend discharge planned. SW is following to assist as needed with discharge planning.
--- NOTE | 2019-08-05 19:25 | NUR ---
PATIENT NOW SLEEPING AND RESPIRATIONS ARE EVEN AND UNLABORED. SHE DOES NOT SEEM TO BE IN PAIN OR DISTRESS. PLEASANT WITH CARE.
[2019-08-05 19:35] VITALS: BP 97/62
--- NOTE | 2019-08-05 23:33 | NUR ---
PT VISITING WITH FAMILY IN ROOM, TEARFUL, SAD AFFECT. IV ANTIBIOTICS CONTINUE. PRN FOR PAIN PROVIDED. ABD FIRM HARD, DUSKY SKIN TONE. . PT DISCUSSED WANTING TO TALK WITH PALLIATIVE DR ABOUT [facility] AND TO HAVE TELE BOX DCD. PT DISCUSSED HOPE TO DC TOMORROW AFTERNOON. STAYING THE NIGTH.
[2019-08-06 03:15] VITALS: BP 118/80
[2019-08-06 05:59] LABS: HEMATOCRIT 37.2 % (42.0-52.0); HEMOGLOBIN 12.4 gm/dL (14.0-18.0); MCH 32.8 pg (26.0-34.0); MCHC 33.4 g/dL (28.0-37.0); MCV 98.2 fL (80.0-100.0); RBC 3.79 mil/uL (4.50-6.00); RDW 18.6 % (10.5-14.5); WBC 9.9 thou/uL (4.0-11.0)
[2019-08-06 06:20] LABS: CALCIUM 9.1 mg/dL (8.5-10.1); CREATININE 1.1 mg/dL (0.7-1.3); POTASSIUM 4.4 mmol/L (3.5-5.1)
[2019-08-06 07:36] VITALS: BP 102/63
[2019-08-06 15:29] VITALS: BP 100/64
--- NOTE | 2019-08-06 18:24 | NUR ---
RECEIVED PT'S CARE AROUND 0730; PT. ON BED; AOX4; AT THE BED SIDE; DURING AM ASSESSMENT C/O PAIN OVER ABDOMEN; PRN PO PAIN MEDICATION GIVEN; ABLE TO AMBULATE AROUND THE NIGHT; PER DR. SHIELDS CONTACT [facility] TO ARRANGE HOSPICE AT HOME; RN DIGESTIVE NOTIFIED; [employer] PAGED; PER [facility] HOSPICE NEEDED TO BE CONTACTED & SEND DOCUMENTS PER REQUESTED; HOSPICE CONTACTED; INFORMATION GIVEN; DOCUMENTS FAXED (FACE SHEET, ORDER FOR HOSPICE; H&P; MEDICATION LIST); PER HOSPICE EVALUATION ABLE TO BE PERFORMED ON 08/07/2019; CONTACT NUMBER [phone]; PHYSICIAN NOTIFIED; PER PHYSICIAN OK TO D/C MONITOR; STATUS CHANGE TO MS; CHARGED NURSE NOTIFIED; ASSESSMENT CHARGED; FOLLOWING POC; WILL PASS ON REPORT; ASSESSMENT CHARGED; FOLLOWING POC; WILL PASS ON REPORT;
[2019-08-06 19:55] VITALS: BP 134/66
--- NOTE | 2019-08-06 21:30 | NUR ---
Transferred to room 406 with all his belongings. Family members with pt.
[2019-08-06 21:52] VITALS: BP 123/77
--- NOTE | 2019-08-06 23:18 | NUR ---
PATIENT TRANSFERRED FROM 3W ROOM 356 TO 4N AT 2140 WITH TWO NURSES AND FAMILY MEMBERS. ALERT AND ORIENTED X4. WALKED FROM BED TO BED WITH ONE ASSIST. IVF INFUSING W/O COMPLICATION. RESTING COMFORTABLE W/O C/O PAIN. WILL MONITOR.
--- NOTE | 2019-08-07 06:30 | NUR ---
PATIENT ALERT AND ORIENTED X4. PLEASANT AND COOPERATIVE. SLEEPS IN HIS CLOTHES AND BOOTIE HOUSESHOES. THESE WERE CHANGED BY HIS AND SON DURING THE NIGHT THEY STATED HE WAS SWEATING. RIGHT PORTACATH WITH BLOOD DRAW AND IVPB INFUSING. C/O PAIN TO ABDOMEN WHICH IS DISTENDED AND MEDICATED WITH OXYCODONE X2 AND DILAUDID X1 WITH ZOFRAN X1. ASLEEP AT TIME OF NOTE. FAMILY STAYED THROUGHOUT THE NIGHT. UP IN ROOM WITH SBA. PATIENT SLIGHTLY JAUNDICED WITH HIS SKIN, HOWEVER, NOT NOTED IN HIS EYES BY THIS NURSE. HOSPICE TO COME AND EVALUATE FOR HOSPICE HOUSE TODAY. RESTING QUIETLY.
--- NOTE | 2019-08-07 08:59 | NUR ---
PT REPORTS PAIN IS PARTIALLY MANAGED WITH MEDICATION. UP AD JORGE AMBULATING AROUND UNIT WITH STEADY & BALANCED GAIT. [facility] IN ROOM FOR EVALUATION AT THIS TIME. PATIENT EXPRESSING DESIRE TO DISCHARGE HOME TODAY. REMAINS ON ROOM AIR, DENIES ANY RESPIRATORY NEEDS. NO S/S OF RESP DISTRESS NOTED. PATIENT'S AND SON REMAIN AT BEDSIDE. PATIENT PROGRESSING TOWARDS GOALS FOR DISCHARGE.
[2019-08-07 09:20] VITALS: BP 95/66
[2019-08-07] MEDS ORDERED: CIPRO250 M1 PO (14:53)
[2019-08-07 19:33] VITALS: BP 105/69
--- NOTE | 2019-08-07 23:26 | NUR ---
PATIENT HAS HAD THREE BM'S SINCE THIS NURSE STARTED SHIFT TONIGHT. THE LAST ONE WAS LARGE WITH A COMBINATION OF SOFT STOOL WITH HARD FORMED PIECES. PATIENT WAS ABLE TO HOLD ALL OF HIS ENEMA AND HE DRANK ALL OF HIS MAG CITRATE ON THE AM SHIFT. HE IS RESTING QUIETLY AFTER PAIN MEDICATION. WILL MONITOR.
--- NOTE | 2019-08-08 04:33 | NUR ---
PATIENT HAD A KUB YESTERDAY WHICH SHOWED A LARGE AMOUNT OF STOOL IN HIS COLON. HE WAS GIVEN LACTULOSE, MAG CITRATE AND AN ENEMA. STOOLS FOLLOWED, THE LAST BEING VERY LARGE WITH BOTH SOFT AND HARD STOOL PIECES AROUND 2230. ALSO HAD SOME EMESIS OF APPROX. 250ML. THIS PROCESS LEFT HIM VERY WEAK. HE WAS GIVEN DILAUDID IVP FOR HIS PAIN AND RESTED UNTIL APPROX 0215 WHEN THIS NURSE AWAKENED HIM AND PUT HIM ON THE BSC. NO STOOL OR GAS WAS PASSED AT THIS TIME AND PATIENT STATED THAT HE FELT NO PRESSURE AND THOUGHT THAT ALL STOOL HAD PASSED HE WAS MUCH BETTER, JUST WEAK. PATIENT WAS GIVEN OXY FOR PAIN AND LORAZEPAM PER REQUEST. AND GRANDCHILD AT BEDSIDE THROUGHOUT THE NIGHT. IVF INFUSING PER ORDER. ABDOMEN REMAINS DISTENDED AND FIRM. THIS NURSE WILL PASS ON TO AM NURSE THE NEED TO CONTACT HOSPICE IN THE AM. PATIENT IS RESTING QUIETLY. WILL MONITOR.
[2019-08-08 08:42] VITALS: BP 113/76
[2019-08-08 09:43] VITALS: BP 113/76
--- NOTE | 2019-08-08 10:09 | NUR ---
ASSUMED CARE AT 0700. PT IS AOX4, VSS, PAIN 9/10 IN LOWER STOMACH. PT RECEIVED PRN PAIN ANALGESIC ORDERED. PT ALSO RECEIVED MIRALAX WITH HIS COFFEE. PT REPORTS HE FEELS BETTER AFTER HAVING 2 BOWEL MOVEMENTS. PT STOMACH IS DISTENDED. ACTIVE BS HEARD, TOLERATING DIET WELL. AMBULATES WITH SB ASSIST UNCASE HE GETS DIZZY. PT DISCHARGED HOME WITH HOSPICE CARE. PT TRANSFERRED TO CAR BY VOLUNTEER AND WITH DRIVE HOME.
--- NOTE | 2019-08-08 17:16 | NUR ---
DISCHARGE NOTE: SW reviewed chart and spoke with nursing and attending physician. Pt was transferred to [facility] from [facility] and is medically stable to discharge home today with Hospice. Hospice came out to meet with pt and family on Thursday. Per nursing, [facility] did not have any available to admit pt on service yesterday. Pt discharged home this morning. Pt's family provided transportation home. MARIAN spoke with Hedy in intake to confirm everything is in place. [facility] is currently at pt's home admitting pt on service. No additional SW needs identified at this time, but is available to assist should needs arise.
== END 2019-08-08 10:13 | disposition hospice, home (50) | DRG 371 ==
LOC: ER 10:16 → 3W 12:30 → EROBS 12:30 → 3W 15:04 → 4N 08-06 21:49 → ENTRNSPT 08-08 09:52 → EDTRNSPTSTS 08-08 09:53 → 4N 08-08 10:13
PROVIDERS: Emergency Medicine; Nurse Practitioner; ADMIT Hospitalist
DX: K65.2 Spontaneous bacterial peritonitis (principal); E43 Unspecified severe protein-calorie malnutrition; C34.90 Malignant neoplasm of unspecified part of unspecified bronchus or lung; C78.7 Secondary malignant neoplasm of liver and intrahepatic bile duct; C79.89 Secondary malignant neoplasm of other specified sites; R17 Unspecified jaundice; R18.8 Other ascites; J45.909 Unspecified asthma, uncomplicated; G47.30 Sleep apnea, unspecified; G89.29 Other chronic pain; K59.00 Constipation, unspecified; F17.210 Nicotine dependence, cigarettes, uncomplicated; F32.9 Major depressive disorder, single episode, unspecified; I10 Essential (primary) hypertension; E78.5 Hyperlipidemia, unspecified; J43.9 Emphysema, unspecified; G25.81 Restless legs syndrome; Z79.2 Long term (current) use of antibiotics; Z68.22 Body mass index [BMI] 22.0-22.9, adult; Z88.8 Allergy status to other drugs, medicaments and biological substances; Z79.891 Long term (current) use of opiate analgesic; Z79.899 Other long term (current) drug therapy
CPT/HCPCS: 10091; 10790; 10879